=== PATIENT | male | born 1970 | race Caucasian/White ===

== ENCOUNTER → 2016-10-15 | Outpatient (CLI) | payer MEDICAID ==
[~2016-10-15] MED LIST: AMOXICILLIN500 M2 PO; BACTRIM DS 8001 TA1 PO; CIPRO 500MG TA500 MG PO; ETODOLAC400 MG PO; FLEXERIL10 M1 PO; FLEXERIL10 MG PO; GABAPENTIN800 MG PO; HYDROCODONE-APA1 TA1 PO; HYDROCODONE-APA1 TA2 PO; IBU800 M1 PO; IBUPROFEN400 MG PO; INDOMETHACIN 2525 MG PO; KEFLEX 500MG.500 MG PO; KLONOPIN0.5 MG PO; KLONOPIN1 MG PO; LORTAB 5/500 501 TAB PO; LORTAB 500 MG-11 TAB PO; MEDROL 4MG TABLE4 MG PO; MEDROL 4MG. DOSE4 MG PO; NAPROSYN 500MG500 MG PO; NEURONTIN 300M300 MG OR; NEURONTIN 300M300 MG PO; OMEPRAZOLE20 MG PO; PANTOPRAZOLE SO40 M1 PO; PERCOCET 5/3251 EACH PO; PHENERGAN 25MG.25 M1 PO; PREDNICOT10 MG PO; PREDNISONE50 MG PO; PRILOSEC OTC20 MG PO; PRILOSEC20 M1 PO; PROTONIX 40MG T40 MG PO; STERAPRED DS10 MG PO; SUMATRIPTAN SU100 MG PO; TAMIFLU 75MG CA75 MG PO; TESSALON PERLE100 MG PO; TRAMADOL 50MG T50 MG PO; ZITHROMAX Z-PA250 M2 PO
[2016-10-15 18:22] LABS: AMPHETAMINES/METAMPHETAMINES NEGATIVE ng/mL (<1000)
== END ==
LOC: LAB 17:05
PROVIDERS: Physician Assistant
DX: Z79.899 Other long term (current) drug therapy (principal)

== ENCOUNTER → 2017-03-19 | Outpatient (CLI) | payer MEDICAID ==
[2017-03-19 14:24] LABS: AMPHETAMINES/METAMPHETAMINES NEGATIVE ng/mL (<1000)
== END ==
LOC: LAB 14:11
PROVIDERS: Nurse Practitioner Family
DX: Z79.899 Other long term (current) drug therapy (principal)